=== PATIENT | female | born 1990 | race African-American/Black ===

== ENCOUNTER 2016-12-31 21:46 | Emergency (ER) | payer OTHER ==
[~2016-12-31] VITALS: Ht 167.6 cm; Wt 77.1 kg
[~2016-12-31 21:46] MED LIST: ZOFRAN4 M2 PO
--- NOTE | 2016-12-31 22:19 | ED CARDIAC/CP/PALPITATIONS ---
History of Present Illness General Chief Complaint: Chest Pain Stated Complaint: CHEST PAIN Source: patient, old records Exam Limitations: no limitations Vital Signs & Intake/Output Vital Signs & Intake/Output Vital Signs Date Time Temp Pulse Resp B/P B/P Pulse O2 O2 Flow FiO2 Mean Ox Delivery Rate 12/31 2249 Room Air 12/317 97.5 80 18 108/63 98 Room Air Allergies Coded Allergies: No Known Allergies (08/27/16) Reconcile Medications Doxylamine/Pyridoxine HCl (Diclegis 10-10 MG Tablet) 10 MG-10 MG TABLET.DR 1 TAB PO BID N/V (Reported) Vit No.130/Iron/FA ( Tablet) 27 MG IRON-800 MCG TABLET 1 TAB PO DAILY (Reported) Ranitidine (Ranitidine HCl) (Unknown Strength) TABLET (Unknown Dose) UNKNOWN (Reported) Triage Note: PT 25 WEEKS AND 1 DAY , , TO TRIAGE FROM [facility] FOR C/O CHEST PAIN SINCE 5PM, NOW PAIN GETTING WORSE AND /10, ALSO PT C/O LOWER ABD PAIN AND LOW/MIDDLE BACK PAIN 10/10, +NAUSEA SINCE 1.30PM. PT RECEIVED ZOFRAN 4MG IV AND LACTATED RINGERS 500ML BOLUS AT [facility], LACTATED RINGERS CONTINUE INFUSING AT 125ML/HR ON ARRIVAL. PT HAS BEEN EVALUATED BY - PT IS NOT IN LABOR, FETUS WNL, FHR 140'S. PTS VSS. PT CLEARED TO STAY IN ER FOR EVAL. Triage Nurses Notes Reviewed? yes : Yes Patient currently breastfeeds: No HPI: Patient is 25 weeks and has had multiple episodes of nausea and vomiting during this . Since yesterday she has had another episode of intractable nausea and vomiting. This evening she developed a sharp pain just to the right of her sternum with retching. There is no radiation of the pain. Patient denies any shortness of breath or coughing. Patient went [facility] the [facility] and was told that she was not in labor and then sent over here for evaluation. Patient denies dyspnea on exertion. There is no orthopnea. Past History Travel History Traveled to [place] past 21 day No Medical History Any Pertinent Medical History? none Surgical History Surgical History: non-contributory Psychosocial History What is your primary language Portuguese Tobacco Use: Never used ETOH Use: denies use Illicit Drug Use: denies illicit drug use Family History Hx Contributory? No Review of Systems Review of Systems Constitutional: Reports: no symptoms. Respiratory: Reports: see HPI. Cardiovascular: Reports: see HPI, chest pain. GI: Reports: see HPI, nausea, vomiting. Musculoskeletal: Reports: no symptoms. Neurological/Psychological: Reports: no symptoms. Immunologic/Allergic: Reports: no symptoms. Physical Exam Physical Exam General Appearance: well developed/nourished, alert, awake Head: atraumatic, normal appearance Eyes: Bilateral: PERRL, EOMI. Ears, Nose, Throat: normal pharynx, normal ENT inspection, hearing grossly normal Neck: normal inspection, supple, full range of motion Respiratory: normal breath sounds, no respiratory distress, lungs clear, TENDER TO PALPATION Cardiovascular: regular rate/rhythm, normal peripheral pulses Gastrointestinal: GRAVID Extremities: normal inspection, normal capillary refill, normal range of motion Neurologic/Psych: no motor/sensory deficits, awake, alert, oriented x 3, normal gait, normal mood/affect Core Measures ACS in differential dx? No Severe Sepsis Present: No Septic Shock Present: No Progress Differential Diagnosis: musculoskeletal pain Plan of Care: Orders Procedure Date/time Status COMPREHENSIVE METABOLIC PANEL 12/31 2218 Complete CBC WITHOUT DIFFERENTIAL 12/31 2218 Complete EKG 12/31 2218 Active Current Medications Sig/Ashley Start time Last Medication Dose Stop Time Status Admin Sodium Chloride 1,000 ML BOLUS ONE 12/31 2330 AC (Normal Saline 0.9%) 01/01 0029 Laboratory Tests 12/31/16 2243: Anion Gap 9, Estimated GFR > 60, BUN/Creatinine Ratio 10.0, Glucose 86, Calcium 8.7, Total Bilirubin 0.2, AST 19, ALT 26, Alkaline Phosphatase 55, Total Protein 6.4, Albumin 3.1 L, Globulin 3.3, Albumin/Globulin Ratio 0.9 L, CBC w Diff NO MAN DIFF REQ, RBC 3.39 L, MCV 78.9 L, MCH 25.6 L, RDW 17.0 H, MPV 9.2, Gran % 66.4, Lymphocytes % 22.6, Monocytes % 8.9, Eosinophils % 1.8, Basophils % 0.3, Absolute Granulocytes 6.1, Absolute Lymphocytes 2.1, Absolute Monocytes 0.8 H, Absolute Eosinophils 0.2, Absolute Basophils 0, PUBS MCHC 32.4 L Initial ED EKG: NSR, no ST T wave changes Comments: HIGHLY DOUBT PE. WELLS SCORE 0 AND PERC NEGATIVE. Departure Departure Disposition: HOME OR SELF CARE Condition: Stable Clinical Impression Primary Impression: Headache Secondary Impressions: Chest wall pain Referrals: RACHAEL SANDS,ADAM Caceres PATIENT HAS NO PRIMARY CARE DR (PCP/Family) Additional Instructions: RETURN IF SYMPTOMS WORSEN OR FOR ANY CONCERNS Departure Forms: Customer Survey General Discharge Information Critical Care Note Critical Care Note Critical Care Time: non-applicable
[2016-12-31 22:53] LABS: ABSOLUTE BASOPHIL COUNT 0 /CUMM (0.0-0.2); ABSOLUTE EOSINOPHIL COUNT 0.2 /CUMM (0.0-0.7); ABSOLUTE GRANULOCYTE CT 6.1 /CUMM (1.4-6.5); ABSOLUTE LYMPH COUNT 2.1 /CUMM (1.2-3.4); ABSOLUTE MONOCYTE COUNT 0.8 /CUMM (0.10-0.60); BASOPHIL % 0.3 % (0.0-2.0); EOSINOPHIL % 1.8 % (0-5); GRANULOCYTE % 66.4 % (42.2-75.2); HEMATOCRIT 26.8 % (37-47); MEAN CORPUSCULAR HGB 25.6 PG (27.0-31.0); MEAN CORPUSCULAR HGB CONC 32.4 G/DL (33.0-37.0); MEAN CORPUSCULAR VOLUME 78.9 FL (81.0-99.0); MEAN PLATELET VOLUME 9.2 FL (7.4-10.4); PLATELET COUNT 200 /CUMM (130-400); RED BLOOD CELL CT 3.39 /CUMM (4.20-5.40); WHITE BLOOD CELL COUNT 9.1 /CUMM (4.8-10.8)
[2016-12-31] MEDS ORDERED: PRENATAL TABLE1 EAC2 PO (23:03)
[2016-12-31] MEDS ORDERED: DICLEGIS DR 101 EACH PO (23:04)
[2016-12-31] MEDS ORDERED: RANITIDINE HCL150 MG (23:05)
[2017-01-01 00:45] VITALS: BP 115/56
== END 2017-01-01 01:12 ==
LOC: ERH 21:46
PROVIDERS: Emergency Medicine
DX: O99.89 Other specified diseases and conditions complicating pregnancy, childbirth and the puerperium (principal); R07.89 Other chest pain; R51 Headache; Z3A.25 25 weeks gestation of pregnancy
CPT/HCPCS: 93005; 93010; 96361; 96374; G0463; J0131; J2405

== ENCOUNTER 2017-03-11 05:37 | Observation (INO) | payer OTHER ==
[~2017-03-11 05:37] MED LIST changes: +DICLEGIS DR 101 EACH PO; +PRENATAL TABLE1 EAC2 PO; +RANITIDINE HCL150 MG
[2017-03-11 07:01] LABS: ABSOLUTE BASOPHIL COUNT 0 /CUMM (0.0-0.2); ABSOLUTE EOSINOPHIL COUNT 0.1 /CUMM (0.0-0.7); ABSOLUTE GRANULOCYTE CT 6.9 /CUMM (1.4-6.5); ABSOLUTE LYMPH COUNT 2.5 /CUMM (1.2-3.4); ABSOLUTE MONOCYTE COUNT 1.2 /CUMM (0.10-0.60); BASOPHIL % 0.2 % (0.0-2.0); EOSINOPHIL % 0.9 % (0-5); GRANULOCYTE % 64.1 % (42.2-75.2); HEMATOCRIT 25.7 % (37-47); MEAN CORPUSCULAR HGB 24.1 PG (27.0-31.0); MEAN CORPUSCULAR HGB CONC 31.8 G/DL (33.0-37.0); MEAN CORPUSCULAR VOLUME 75.6 FL (81.0-99.0); MEAN PLATELET VOLUME 8.8 FL (7.4-10.4); PLATELET COUNT 225 /CUMM (130-400); RBC DISTRIBUTION WIDTH 18.8 % (11.5-14.5); WHITE BLOOD CELL COUNT 10.7 /CUMM (4.8-10.8)
[2017-03-11 11:17] LABS: ABSOLUTE BASOPHIL COUNT 0 /CUMM (0.0-0.2); ABSOLUTE EOSINOPHIL COUNT 0.1 /CUMM (0.0-0.7); ABSOLUTE GRANULOCYTE CT 8.2 /CUMM (1.4-6.5); ABSOLUTE LYMPH COUNT 1.3 /CUMM (1.2-3.4); BASOPHIL % 0.3 % (0.0-2.0); EOSINOPHIL % 0.5 % (0-5); GRANULOCYTE % 77.5 % (42.2-75.2); HEMATOCRIT 26.2 % (37-47); MEAN CORPUSCULAR HGB 24.4 PG (27.0-31.0); MEAN CORPUSCULAR VOLUME 76.4 FL (81.0-99.0); MEAN PLATELET VOLUME 8.9 FL (7.4-10.4); PLATELET COUNT 213 /CUMM (130-400); RBC DISTRIBUTION WIDTH 18.8 % (11.5-14.5); RED BLOOD CELL CT 3.43 /CUMM (4.20-5.40); WHITE BLOOD CELL COUNT 10.6 /CUMM (4.8-10.8)
== END 2017-03-11 19:00 ==
LOC: CBCO 05:37 → GNO 06:38
PROVIDERS: Obstetrics & Gynecology
DX: O47.03 False labor before 37 completed weeks of gestation, third trimester (principal); Z3A.35 35 weeks gestation of pregnancy
CPT/HCPCS: 81001; 96360; 96361; 96365; 96372; 96375; G0378; G0463; J0696; J2270; J2405; J7120

== ENCOUNTER 2017-04-03 14:30 | Inpatient (IN) | payer OTHER ==
[~2017-04-03] VITALS: Ht 167.6 cm; Wt 86.2 kg
[2017-04-03 14:59] LABS: ABSOLUTE BASOPHIL COUNT 0 /CUMM (0.0-0.2); ABSOLUTE EOSINOPHIL COUNT 0.1 /CUMM (0.0-0.7); ABSOLUTE GRANULOCYTE CT 5.1 /CUMM (1.4-6.5); ABSOLUTE LYMPH COUNT 2.1 /CUMM (1.2-3.4); ABSOLUTE MONOCYTE COUNT 1.1 /CUMM (0.10-0.60); BASOPHIL % 0.4 % (0.0-2.0); EOSINOPHIL % 0.7 % (0-5); GRANULOCYTE % 61.3 % (42.2-75.2); HEMATOCRIT 28.5 % (37-47); MEAN CORPUSCULAR HGB 23.1 PG (27.0-31.0); MEAN CORPUSCULAR HGB CONC 31.2 G/DL (33.0-37.0); MEAN CORPUSCULAR VOLUME 73.8 FL (81.0-99.0); MEAN PLATELET VOLUME 8.8 FL (7.4-10.4); PLATELET COUNT 252 /CUMM (130-400); RBC DISTRIBUTION WIDTH 19.9 % (11.5-14.5); RED BLOOD CELL CT 3.86 /CUMM (4.20-5.40); WHITE BLOOD CELL COUNT 8.4 /CUMM (4.8-10.8)
--- NOTE | 2017-04-03 22:40 | History & Physical ---
General Information and HPI MD Statement: I have seen and personally examined DANNA MUÑOZ and documented this H&P. The patient is a 26 year old female at [38] weeks and [5] days gestation who presented with a chief complaint of [dizziness and early labor]. History of Present Illness: This patient is a 26-year-old 4 para 1 LMP 07/08/2016 EDC 04/14/2017 at 38 weeks and 5 days presented to labor and delivery this afternoon complaining of dizziness and abdominal pain throughout the night and this morning. care is significant for pyelonephritis and late transfer from Dr. Monteiro. Her initial blood pressure is 185/69 and she had apprehensive affect. His mother well to fluids and her [facility] labs were within normal limits. Over the next few hours she committed herself into active labor and is now admitted. 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 EENTM: Reports: visual changes. Cardiovascular: Denies: chest pain, orthopena, palpitations, syncope. Respiratory: Denies: no symptoms, see HPI, cough, hemoptysis, orthopnea, short of breath, sputum production, stridor, wheezing. GI: Reports: abdominal pain. Denies: no symptoms, see HPI, bloating, constipation, diarrhea, distention, bowel incontinence, melena, nausea, bloody stool, changes in stool, vomiting, steatorrhea. Genitourinary: Denies: no symptoms, see HPI, discharge, dysuria, frequency, hematuria, hesitation, nocturia, pain, urgency. Musculoskeletal: Denies: no symptoms, see HPI, back pain, gout, joint pain, joint swelling, muscle pain, muscle stiffness, neck pain. Skin: Denies: no symptoms, see HPI, cysts, change in skin color, change in hair/nails, dryness, erythema, jaundice, lesions, lymphangitis, lumps, moles, rash. Neurological/Psychological: Reports: see HPI. Denies: no symptoms, anxiety, ataxia, cognitive dysfunction, confusion, depressed, dementia, emotional problems, headache, numbness, paresthesia, pre-existing deficit, petit mal seizures, tingling, tremors, tonic- clonic seizures, unable to move lower ext, unable to move upper ext, weakness, other. Hematologic/Endocrine: Denies: no symptoms, see HPI, bruising, bleeding, polyuria, polydipsia, other. Immunologic/Allergic: Denies: no symptoms, see HPI, splenectomy, HIV/AIDS, lymphadenopathy, other. All Other Systems: Reviewed and Negative Exam & Diagnostic Data Obstetric Exam Wgt Gained During : 30 pounds Pelvimetry: Gynecoid Dilation (cm): 3 Effacement (%): 90 Station: -1 Membranes: intact Fluid: unknown Fundal Height (cm): 39 Multiple Gestation? No Contractions: Every 2-3 #1 - FHR Baseline: 140 Category: 1 Estimated Weight: 7 pounds Presentation: Cephalic Patient for Induction? No Physical Exam: HEENT: Normocephalic atraumatic Chest: Clear to auscultation Cardiovascular: Normal S1, S2 Abdomen: Gravid, estimated weight 7 pounds, cephalic Pelvic: 3 cm 90% effaced -1 station Extremities: No clubbing cyanosis or edema 3+ DTRs Neurologic: Alert and oriented 3 DTRs +3 Labs Blood Type & Rh: B+ Antibody Screen: Negative Hct/Hgb & Platelets #1: [id number] Hct/Hgb & Platelets #2: 238 0.4262 Rubella: MM VDRL #1: Nonreactive VDRL #2: Nonreactive HbsAg: Negative HIV #1: Negative HIV #2 Negative 1 Hr P Group B Strep: Negative Initial Ultrasound: Within normal limits with subchorionic hematoma Anatomy Ultrasound: Normal Ultrasound for EFW: 65 Genetic Testing: Negative Last 24 Hrs of Labs/Taiwo: Laboratory Tests 04/03/17 2012: CBC w Diff Cancelled, WBC Cancelled, RBC Cancelled, Hgb Cancelled, Hct Cancelled , MCV Cancelled, MCH Cancelled, RDW Cancelled, Plt Count Cancelled, MPV Cancelled, PUBS MCHC Cancelled, Urine Color Cancelled, Urine Clarity Cancelled, Urine pH Cancelled, Ur Specific [place] Cancelled, Urine Protein Cancelled, Urine Ketones Cancelled, Urine Nitrite Cancelled, Urine Bilirubin Cancelled, Urine Urobilinogen Cancelled, Ur Leukocyte Esterase Cancelled, Ur Microscopic Cancelled, Urine Hemoglobin Cancelled, Urine Glucose Cancelled 04/03/17 1445: Ur Random Creatinine 24.4, U Random Total Protein 16 H, Protein/Creatinin Ratio 0.6 H 04/03/17 1445: Estimated GFR > 60, Uric Acid 4.6, AST 24, ALT 29, Lactate Dehydrogenase 452, CBC w Diff NO MAN DIFF REQ, RBC 3.86 L, MCV 73.8 L, MCH 23.1 L, RDW 19.9 H, MPV 8.8, Gran % 61.3, Lymphocytes % 25.1, Monocytes % 12.5 H, Eosinophils % 0.7 , Basophils % 0.4, Absolute Granulocytes 5.1, Absolute Lymphocytes 2.1, Absolute Monocytes 1.1 H, Absolute Eosinophils 0.1, Absolute Basophils 0, PUBS MCHC 31.2 L, Urine Opiates Screen < 100.00, Methadone Screen < 40, Barbiturate Screen < 60, Ur Phencyclidine Scrn < 6.00, Amphetamines Screen < 100, U Benzodiazepines Scrn < 85, Urine Cocaine Screen < 50, Urine Cannabis Screen < 5.00, Urine Color STRAW, Urine Clarity CLEAR, Urine pH 6.5, Ur Specific [place] 1.010, Urine Protein NEG, Urine Ketones NEG, Urine Nitrite NEG, Urine Bilirubin NEG, Urine Urobilinogen 0.2, Ur Leukocyte Esterase NEG, Ur Microscopic EXAM NOT REQUIRED, Urine Hemoglobin NEG, Urine Glucose NEG Assessment/Plan Assessment/Plan: Early active labor at 39 weeks Plan: Expectant management As Ranked By This Provider Problem List: 1. Core Measures/Miscellaneous Venous Thromboembolism VTE Risk Factors: / VTE Contraindications: No Contraindications VTE Diagnosis: No VTE Type: NONE Beta Alexey Is Beta Alexey a Home Med? No Antibiotics Is Patient on Antibiotics? No
--- NOTE | 2017-04-04 00:05 | Labor & Delivery Summary ---
Delivery Summary Vaginal Delivery: Vaginal: vertex Episiotomy/Lacerations: Episiotomy/Lacerations: none Placenta: Placenta: spontanteous, normal, 3 vessel Anesthesia: EPIDURAL Baby's Weight: P STS Apgars - 1 Min: 9 Apgars - 5 Min: 9
[2017-04-04 00:34] VITALS: BP 127/57
[2017-04-04 08:46] LABS: ABSOLUTE BASOPHIL COUNT 0 /CUMM (0.0-0.2); ABSOLUTE EOSINOPHIL COUNT 0 /CUMM (0.0-0.7); ABSOLUTE GRANULOCYTE CT 10.5 /CUMM (1.4-6.5); ABSOLUTE LYMPH COUNT 1.6 /CUMM (1.2-3.4); ABSOLUTE MONOCYTE COUNT 1.4 /CUMM (0.10-0.60); BASOPHIL % 0.3 % (0.0-2.0); EOSINOPHIL % 0.3 % (0-5); GRANULOCYTE % 77.5 % (42.2-75.2); HEMATOCRIT 24.4 % (37-47); MEAN CORPUSCULAR HGB 25.1 PG (27.0-31.0); MEAN PLATELET VOLUME 9.3 FL (7.4-10.4); PLATELET COUNT 224 /CUMM (130-400); RBC DISTRIBUTION WIDTH 19.9 % (11.5-14.5); RED BLOOD CELL CT 3.11 /CUMM (4.20-5.40)
[2017-04-04 08:49] LABS: MEAN CORPUSCULAR VOLUME 78.5 FL (81.0-99.0); WHITE BLOOD CELL COUNT 13.5 /CUMM (4.8-10.8)
--- NOTE | 2017-04-04 14:13 | Cons- Medical ---
GRIFFIN MEHTA MD 04/04/17 1413: General Information and HPI Consulting Request Date of Consult: 04/04/17 Requested By: COY PORTILLO MD Reason for Consult: Seizure like activity Source of Information: patient, family, EMS Exam Limitations: no limitations History of Present Illness: Patient is a 26 YO -[place] F with PMH significant for pyelonephritis during period presented to the [facility] with dizziness, altered mentation, jerky movements. She went into labour soon. She remained altered for around 3hrs after coming to the hospital. She did have mild jerky movements, eyes rolling back on and off. She had profuse sweating along with imbalance in her gait. At presentation her blood pressure is 185/69 mmHg. Her labs at admission including urinalysis, liver function tests are completely normal. She did have severe headaches prior to arrival. 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 Headache started 45 minutes prior to arrival. She denies any recent infections, medication intake. On day 1, she is completely forgetful about her delivery and pain which concerned TECHNICAL SALES ASSOCIATE to consult medical services for a possible seizure like activity. She is completely normal today. She denies any previous similar episodes during her prior or childhood. No one in the family had similar presentation or seizures or epilepsy. Previous child is healthy and 6-year-old. Allergies/Medications Allergies: Coded Allergies: No Known Allergies (08/27/16) Home Med List: Doxylamine/Pyridoxine HCl (Dicadia Dr 10-10 MG Tablet) 10 MG-10 MG TABLET.DR 1 TAB PO BID N/V (Reported) Vit No.130/Iron/FA ( Tablet) 27 MG IRON-800 MCG TABLET 1 TAB PO DAILY (Reported) Ranitidine (Ranitidine HCl) (Unknown Strength) TABLET (Unknown Dose) UNKNOWN (Reported) Current Medications: Current Medications Sig/Ashley Start time Last Medication Dose Route Stop Time Status Admin Chloroprocaine HCl 30 ML .STK-MED ONE 04/03 2346 DC IV 04/03 2347 Docusate Sodium 100 MG BID PRN 04/04 0015 AC PO Ibuprofen 800 MG Q6P PRN 04/04 0015 AC 04/04 PO 0629 Lactated Ringer's 1,000 ML Q8H 04/03 2015 DC IV Magnesium Hydroxide 30 ML DAILY PRN 04/04 0015 AC PO Oxytocin 20 UNITS Q5H 04/04 0015 DC 04/03 Lactated Ringer's 1,000 ML IV 04/04 0514 2354 Oxytocin 20 UNITS .STK-MED ONE 04/03 2346 DC IV 04/03 2347 Review of Systems Review of Systems Constitutional: Reports: no symptoms, see HPI. EENTM: Reports: no symptoms. Cardiovascular: Reports: no symptoms. Respiratory: Reports: no symptoms. GI: Reports: abdominal pain. Genitourinary: Reports: no symptoms. Musculoskeletal: Reports: no symptoms. Skin: Reports: no symptoms. Neurological/Psychological: Reports: no symptoms. Hematologic/Endocrine: Reports: no symptoms. Immunologic/Allergic: Reports: no symptoms. Past History Travel History Traveled to [place] past 21 day No Medical History Neurological: NONE EENT: NONE Cardiovascular: NONE Gastrointestinal: pyelonephritis during Surgical History Surgical History: non-contributory Psychosocial History Where Do You Live? Home Who Do You Live With? sibling Services at Home: None Smoking Status: Never Smoked Functional Ability ADLs Independent: dressing, eating, toileting, bathing. Ambulation: independent IADLs Independent: shopping, housework, finances, food prep, telephone, transportation , medication admin. Exam & Diagnostic Data Last 24 Hrs of Vital Signs/I&O Vital Signs Date Time Temp Pulse Resp B/P B/P Pulse O2 O2 Flow FiO2 Mean Ox Delivery Rate 04/04 0034 127/57 Intake & Output 04/04 1600 04/04 0800 04/04 0000 Intake Total Output Total Balance Patient 86.183 kg Weight Physical Exam General Appearance: well developed/nourished, no apparent distress, alert, awake Head: atraumatic, normal appearance Eyes: Bilateral: normal appearance. Ears, Nose, Throat: normal pharynx Neck: normal inspection Respiratory: normal breath sounds, chest non-tender Cardiovascular: regular rate/rhythm, normal peripheral pulses Peripheral Pulses: 2+ radial (R), 2+ radial (L) Gastrointestinal: fundus at 16weeks Back: normal inspection Extremities: normal inspection, normal capillary refill Cranial Nerves: normal hearing, normal speech, PERRL Skin: intact, normal color Reproductive: Bleeding Last 24 Hrs of Labs/Taiwo: Laboratory Tests 04/04/17 0650: CBC w Diff NO MAN DIFF REQ, RBC 3.11 L, MCV 78.5 L, MCH 25.1 L, RDW 19.9 H, MPV 9.3, Gran % 77.5 H, Lymphocytes % 11.9 L, Monocytes % 10.0 H, Eosinophils % 0.3, Basophils % 0.3, Absolute Granulocytes 10.5 H, Absolute Lymphocytes 1.6, Absolute Monocytes 1.4 H, Absolute Eosinophils 0, Absolute Basophils 0, PUBS MCHC 32.0 L 04/03/172011: CBC w Diff Cancelled, WBC Cancelled, RBC Cancelled, Hgb Cancelled, Hct Cancelled , MCV Cancelled, MCH Cancelled, RDW Cancelled, Plt Count Cancelled, MPV Cancelled, PUBS MCHC Cancelled, Urine Color Cancelled, Urine Clarity Cancelled, Urine pH Cancelled, Ur Specific [place] Cancelled, Urine Protein Cancelled, Urine Ketones Cancelled, Urine Nitrite Cancelled, Urine Bilirubin Cancelled, Urine Urobilinogen Cancelled, Ur Leukocyte Esterase Cancelled, Ur Microscopic Cancelled, Urine Hemoglobin Cancelled, Urine Glucose Cancelled Assessment/Plan Assessment/Plan Patient is a very young 26-year-old female with term (38 weeks ) presented to labor yesterday and had a normal spontaneous delivery. Her presentation is eventful with dizziness, occasional jerky movements, eyes rolling back preceded by a headache. Medical service is consulted with a concern for possible seizure kind of activity. Lab workup including urinalysis and LFTs were normal ruling out HELLP. Patient is completely symptomatic after delivery today and doesn't really remember. My differentials at this point include convulsive vasovagal syncope, partial conmplex seizures, angiopathy (less likely). They requested urgent CT scan to rule out acute events and placed a neurology consult. Patient currently appears stable, her lab work appears within normal limits today. At this point we await neurology input and follow-up the CT scan. Thank you for consulting medical services, we will follow-up. Problem List: 1. Headache 2. Observed seizure-like activity Copies To: BEE SANDS,COY Verduzco Consult Acknowledgment - Thank you for your consult request. BHARAT SANDS,TRINI 04/04/17 6005: Assessment/Plan Consult Acknowledgment - Thank you for your consult request. Attending MD Review Statement Attending Statement Attending MD Statement: examined this patient, discuss w/resident/PA/INSTRUCTOR EXTENSION WORK, agreed w/resident/PA/INSTRUCTOR EXTENSION WORK, reviewed EMR data (avail) Attending Assessment/Plan: This is a 26-year-old female with no significant past medical history who was 38 weeks and presented to labor and delivery yesterday 04/03. On presentation her pressure was high and apparently somewhere between 2 PM and 5 PM yesterday she had some abnormal jerky movements questionable complex partial seizures. She went into labor and had a normal vaginal delivery early this a.m. Right now she is completely asymptomatic without headaches, without any kind of complaints and her blood pressure is normal. Her labs yesterday for preeclampsia were all within normal limits. What was concerning to the air tool operator Dr. Portillo was that patient appears to have total amnesia of the entire delivery. I am not sure what's going on, utox negative, exam and labs are unrevealing . We clarified with Dr. Portillo and a CT head is safe to do even while she is breast- feeding so the resident will order that. And I also asked to call for a formal neurological consult. For now we are just watching as her pressure is normal and she's asymptomatic.
--- NOTE | 2017-04-04 16:54 | CT SCAN REPORT ---
EXAMINATION: CT HEAD WITHOUT CONTRAST CLINICAL INFORMATION: Post dizziness and abnormal movements. COMPARISON: None TECHNIQUE: Contiguous axial imaging was performed from the skull base to vertex without intravenous administration of contrast. DLP: 617 mGy-cm FINDINGS: There is no evidence of acute intracranial hemorrhage or territorial infarction. No abnormal mass effect or midline shift is seen. Summers to white matter differentiation is well preserved. No extra-axial fluid collections are identified. The ventricles are normal in size. There is no abnormal attenuation within the brain parenchyma. The osseous structures and soft tissues are normal. The mastoid air cells and visualized portions of the paranasal sinuses are well aerated. IMPRESSION: No acute intracranial pathology.
[2017-04-05] MEDS ORDERED: IBUPROFEN800 M1 PO (08:35)
== END 2017-04-05 11:45 | DRG 560 ==
LOC: CBCO 14:30 → GNO 19:53 → CBCO 04-14 09:00
PROVIDERS: Obstetrics & Gynecology; ADMIT Specialist
PROC: 10E0XZZ Delivery of Products of Conception, External Approach (ICD-10-PCS; principal; 2017-04-03)
DX: O99.89 Other specified diseases and conditions complicating pregnancy, childbirth and the puerperium (principal); R56.9 Unspecified convulsions; R51 Headache; Z3A.38 38 weeks gestation of pregnancy; Z37.0 Single live birth
CPT/HCPCS: GNOS; 36415; 80307; 81003; 82570; 96360; 96361; 96374; G0463; J1200; J3475; J7120